=== PATIENT | female | born 1950 | race Asian ===

== ENCOUNTER 2020-08-15 14:11 | Emergency (ER) | payer OTHER ==
[~2020-08-15] VITALS: Ht 167.6 cm; Wt 82.6 kg
[2020-08-15 16:42] LABS: PLATELET COUNT 254 K/uL (152-353)
[2020-08-15 16:45] LABS: POTASSIUM 4.3 mmol/L (3.6-5.2)
[2020-08-15 20:06] VITALS: BP 134/93; TEMP 99.1
== END 2020-08-15 20:12 | disposition home or self-care (01) ==
LOC: ED 14:11
PROVIDERS: Family Medicine
DX: J44.9 Chronic obstructive pulmonary disease, unspecified (principal); I10 Essential (primary) hypertension; R79.89 Other specified abnormal findings of blood chemistry; J06.9 Acute upper respiratory infection, unspecified; R05 Cough; R06.2 Wheezing; F17.210 Nicotine dependence, cigarettes, uncomplicated
CPT/HCPCS: 80053; 82728; 83880; 85027; 85379; 87635; 94664; 99283; J2930; Q9963; U0003